=== PATIENT | female | born 1945 | race Two or more races ===

== ENCOUNTER → 2018-01-10 | Outpatient (CLI) | payer OTHER ==
[~2018-01-10] MED LIST: LOSARTAN POTASS50 MG
== END | disposition home or self-care (01) ==
LOC: LAB 12:21
DX: N30.01 Acute cystitis with hematuria (principal)

== ENCOUNTER 2018-04-08 16:21 | Emergency (ER) | payer OTHER ==
[~2018-04-08] VITALS: Ht 160 cm; Wt 60.3 kg
== END 2018-04-08 19:31 | disposition home or self-care (01) ==
LOC: ER 16:21
DX: R55 Syncope and collapse (principal)

== ENCOUNTER 2018-08-12 01:17 | Emergency (ER) | payer OTHER ==
[~2018-08-12] VITALS: Ht 157.5 cm; Wt 68.0 kg
== END 2018-08-12 09:45 | disposition home or self-care (01) ==
LOC: ER 01:17
DX: K52.89 Other specified noninfective gastroenteritis and colitis (principal); E86.0 Dehydration; I95.89 Other hypotension

== ENCOUNTER 2018-12-20 11:59 | Emergency (ER) | payer OTHER ==
[~2018-12-20] VITALS: Ht 157.5 cm; Wt 68.0 kg
[2018-12-20] MEDS ORDERED: CRESTOR5 MG (13:14)
[2018-12-20] MEDS ORDERED: SINGULAIR4 M1 (13:14)
== END 2018-12-20 18:33 | disposition home or self-care (01) ==
LOC: ER 11:59
DX: J09.X2 Influenza due to identified novel influenza A virus with other respiratory manifestations (principal)

== ENCOUNTER 2020-02-05 08:59 | Emergency (ER) | payer OTHER ==
[~2020-02-05] VITALS: Ht 157.5 cm; Wt 62.1 kg
[~2020-02-05 08:59] MED LIST changes: +CRESTOR5 MG; +SINGULAIR4 M1
== END 2020-02-05 16:13 | disposition home or self-care (01) ==
LOC: ER 08:59
DX: K29.60 Other gastritis without bleeding (principal); Z20.828 Contact with and (suspected) exposure to other viral communicable diseases